=== PATIENT | female | born 1960 | race Caucasian/White ===

== ENCOUNTER 2020-03-14 07:23 | Outpatient (CLI) | payer OTHER, SELFPAY ==
[2020-03-16 05:51] LABS: SARS-CoV-2 RNA Undetected (Undetected); SARS-CoV-2 Specimen Source Nasopharynx
== END 2020-03-14 07:43 ==
PROVIDERS: Visit Provider Family Medicine
DX: Z11.59 Encounter for screening for other viral diseases (principal)
CPT/HCPCS: U0003

== ENCOUNTER 2020-05-02 01:24 | Outpatient (CLI) | payer MEDICAID, SELFPAY ==
[2020-05-02 09:19] LABS: Hemoglobin A1C 5.7 % (<5.7)
[2020-05-02 10:40] LABS: BUN 11 mg/dL (7-18); CREATININE 0.63 mg/dL (0.55-1.02); Calcium 9.2 mg/dL (8.5-10.1); Chloride 103 mmol/L (98-107); Glucose 110 mg/dL (74-106); Potassium 4.3 mmol/L (3.5-5.1); Sodium 140 mmol/L (136-145); TSH 0.11 uIU/mL (0.36-3.74)
== END 2020-05-02 01:44 ==
PROVIDERS: PCP Nurse Practitioner; Visit Provider Family Medicine
DX: I10 Essential (primary) hypertension (principal); E03.9 Hypothyroidism, unspecified; E11.9 Type 2 diabetes mellitus without complications
CPT/HCPCS: 36415; 80048; 83036; 84443

== ENCOUNTER 2020-06-17 04:28 | Outpatient (CLI) | payer MEDICAID, SELFPAY ==
[2020-06-19 09:06] LABS: SARS-CoV-2 RNA Not Detected (NotDetected); SARS-CoV-2 RNA Source Nasal/Nares
== END 2020-06-17 04:48 ==
PROVIDERS: PCP Nurse Practitioner; Visit Provider Surgery
DX: Z11.59 Encounter for screening for other viral diseases (principal); Z01.818 Encounter for other preprocedural examination
CPT/HCPCS: U0003

== ENCOUNTER 2020-06-22 09:13 | Day surgery (SDC) | payer MEDICAID, SELFPAY ==
--- NOTE | 2020-06-22 07:09 | COLE_ITS ---
Date of service: 06/22/20 Time of Service: 11:36 Colonoscopy Report Date of procedure: 06/22/20 Pre-op diagnosis general: Screening colonoscopy Post-op diagnosis procedure note: other (Saucedo-diverticulosis, colorectal polyps) Procedure: Colonoscopy with polypectomy Surgeon: Rosario Wright Anesthesia proc note operative: other (General/ASA 2/Gokul Downing CRNA) Estimated blood loss (mL): 3 Pathology: other (Descending and sigmoid polyp) Complications: None Disposition: same day Indications: No prior colonoscopy. Moved here from [place] by car in February. During the trip noted brownish fluid in the toilet. Nothing present on the toilet paper. No bright rectal bleeding.. Occurs in the am with a BM. No perianal or abdominal pain. No change in bowel habits, has about 2 stools/day. No prior issues with hemorrhoids. No FH colon cancer. Stool cards were heme negative. Has not started any new medications or vitamins. Prep: Miralax/Dulcolax Procedure Start Time: 10:59 Procedure End Time: 11:30 Findings: 2 small polyps and saucedo-diverticulosis Procedure Description: After informed consent was obtained the patient was taken to the procedure room and placed in a left decubitous position. Monitors were applied and a time out was done. The patients name, date of , procedure, allergies to medications and metal in their body was reviewed. The patient was then sedated. Once sedated and comfortable a rectal exam was done. External exam was normal. Internal exam revealed a normal sphincter tone and no palpable masses. The scope was then introduced and retro-flexed. No internal hemorrhoids were identified. The scope was then advanced to the cecum with difficulty. The ileocecal valve and appendiceal orifice were identified. The prep was good. The scope was then slowly retracted over 19 minutes back into the rectum. Po lyps were removed with cold forceps in the descending colon and sigmoid colon. There was moderate diverticulosisThe scope was removed and the patient was woken up and taken back to Same day surgery in stable condition. The patient tolerated the procedure well and there were no immediate complications. Follow up: The patient should follow up in 3-5 years unless they develop changes in bowel habits or other new gastrointestinal complaints.
--- NOTE | 2020-06-22 07:10 | W.PM.DSUDISC ---
Discharge Plan Disposition Patient Disposition: HOME Condition: Good Discharge Details Reason For Visit: Colonoscopy Attending Provider: Rosario Wright Primary Care Provider: Alina Ortiz Home Meds and New Rx's Prescriptions: Continued lisinopril-hydrochlorothiazide 20-25 mg tablet 1 tab PO DAILY Qty: 90 RF: 0 metformin 500 mg tablet 500 mg PO DAILY Qty: 90 RF: 0 levothyroxine 175 mcg capsule 175 mcg PO DAILY Qty: 90 RF: 0 omega-3 fatty acids Capsule 1 cap PO DAILY RF: 0 cholecalciferol (vitamin D3) [Vitamin D3] 125 mcg (5,000 unit) Tablet 125 mcg PO DAILY RF: 0 Discontinued polyethylene glycol 3350 17 gram/dose powder 238 g PO ONCE Qty: 238 RF: 0 bisacodyl [Dulcolax (bisacodyl)] 5 mg tablet,delayed release (DR/EC) 5 mg PO ONCE Qty: 4 RF: 0 Discharge Instructions Instructions: Diverticulosis (DC), Colorectal Polyps (DC) Additional Instructions: Findings: diverticulosis 2 polyps Follow up: 3-5 years Please call if you develop: fevers >101.5 Nausea or Vomiting Abdominal pain that is not transient DAY SURGERY UNIT POST ENDOSCOPY INSTRUCTIONS 1. Because there will be medication in your system for the next 24 hours, you may feel a little sleepy. Your coordination will be affected. Therefore: a. Do not drive or operate dangerous equipment for 24 hours. b. Do not drink alcohol beverages for 24 hours (not even beer). c. Plan to go home and rest for the day. 2. Generally there are no restrictions on your activity after a day or so has gone by, but you may feel a bit fatigued for a few days. 3 After you arrive home you may have a light meal and return to a normal diet as you can tolerate it without feeling sick to your stomach. 4. After surgery, you may feel pain or discomfort. This should be only transient, but if it persists please contact your doctor. 5. If there are any questions regarding the findings of your procedure, please feel free to contact your doctor. 6. If you are unable to contact your doctor with a problem, contact the hospital at [phone]. 7. Continue all your regular medications unless directed otherwise. I understand the above instructions and have no questions. Signature of Patient or Responsible Adult Escort Date/Time Name of Responsible Adult Escort Signature of Nurse Date/Time Activity:: Activity as Tolerated Diet:: High Fiber diet Discharge Orders Discharge Orders: Discharge Order (Routine); Ordered 06/22/20 Ordered By: Rosario Wright
[2020-06-22 09:38] VITALS: BP 132/78; PULSE 71; RESP 18; TEMP 36.5; O2SAT 100
[2020-06-22] MEDS: Lactated Ringers 1,000 ML 80 ML IV (09:55)
--- NOTE | 2020-06-22 11:25 | BOWEL_PTH ---
PATIENT: RUFINA JENKINS LOC: [facility] U#:[id number] AGE/SX: 60/F ROOM: RE06/22/[address]: Rosario Wright MD : 1960 BED: DIS: 06/22/2020 SPEC #: [id number] RECD: 06/22/20 12:37 STATUS: SALEEM REQ #: [id number] SCARLETT: 06/22/20 11:[address]: Rosario Wright DEPT: Surgical Specimen RECD BY: Bekah Llanos ENTERED: 06/22/20 12:38 SP TYPE: Bowel OTHR DR: Alina Ortiz Tissues: 1 - BIOPSY BOWEL 2 - BIOPSY BOWEL Procedures: GROSS AND MICRO LEVEL 4 Comments: [id number]
[2020-06-22 12:11] VITALS: BP 135/79; PULSE 59; RESP 18; TEMP 36.6; O2SAT 100
== END 2020-06-22 12:38 | disposition home or self-care (01) ==
LOC: SUR 09:13
PROVIDERS: PCP Nurse Practitioner; Visit Provider Surgery
PROC: 0DJD8ZZ Inspection of Lower Intestinal Tract, Via Natural or Artificial Opening Endoscopic (ICD-10-PCS; CPT 45378; principal; 2020-06-22 11:00)
DX: Z12.11 Encounter for screening for malignant neoplasm of colon (principal); K57.30 Diverticulosis of large intestine without perforation or abscess without bleeding; K63.5 Polyp of colon; E11.9 Type 2 diabetes mellitus without complications
CPT/HCPCS: 45380; 88305; J2001; J2704

== ENCOUNTER 2020-06-23 01:24 | Outpatient (CLI) | payer MEDICAID, SELFPAY ==
--- NOTE | 2020-06-23 12:56 | DI.MAMMO_ITS ---
EXAM: MG MAMMO SCREENING CLINICAL HISTORY: SCREENING,Z12.39. TECHNIQUE: Bilateral full field digital CC and MLO mammographic images were obtained with 3D tomosyn thesis and utilizing computer aided detection (CAD). COMPARISON: None. This is a baseline mammogram FINDINGS: There are no CAD designations. There are no spiculated masses nor malignant-appearing microcalcification groups. Small benign-appea ring nodules in the upper outer quadrant of the right breast have the appearance of benign lymph node s. A small benign appearing microcalcification rib posteriorly of again suggest wall in a right heraclio st is noted. No significant architectural distortion or skin thickening-traction. IMPRESSION: Benign findings. No radiographic evidence of malignancy. BI-RADS Category 2 - Benign Findings Breast Density - Category A - Almost entirely fatty Breast density Category C or D implies that the patient has dense breast tissue. Dense breast tissue can make it harder to find cancer on a mammogram. Dense breast tissue is also associated with an incr eased risk of breast cancer. This information about the result of the mammogram report was provided to the patient to raise their awareness. Use this report when you speak with the patient about their risks for breast cancer, which includes their family history. At that time, you may recommend additional screening tests (Ultrasoun d or MRI) as these tests may add significant information. A negative radiographic report should not delay biopsy if a dominant or clinically suspicious mass is present. Up to ten percent of cancers are not identified on mammography. A negative report may reinforce clinical impression. Adenosis and dense breasts may obscure an underlying neoplasm. False positive reports average 6 to 10%. Patient will receive a letter notifying them of these results.
== END 2020-06-23 01:44 ==
PROVIDERS: PCP Nurse Practitioner; Visit Provider Nurse Practitioner
DX: Z12.31 Encounter for screening mammogram for malignant neoplasm of breast (principal)
CPT/HCPCS: 77063; 77067

== ENCOUNTER 2020-06-29 13:21 | Outpatient (REF) | payer MEDICAID, SELFPAY ==
[2020-06-29 20:05] LABS: TSH (W/Ref FT4) 0.02 uIU/mL (0.36-3.74)
[2020-06-29 22:06] LABS: FREE T4 1.53 ng/dL (0.76-1.46)
== END 2020-06-29 13:41 ==
LOC: NCHCN 13:21
PROVIDERS: PCP Nurse Practitioner; Visit Provider Nurse Practitioner
DX: E03.9 Hypothyroidism, unspecified (principal)
CPT/HCPCS: 84439; 84443

== ENCOUNTER 2020-10-18 12:51 | Outpatient (REF) | payer MEDICAID, SELFPAY ==
[2020-10-19 09:29] LABS: TSH (W/Ref FT4) 0.04 uIU/mL (0.36-3.74)
[2020-10-19 09:46] LABS: FREE T4 1.46 ng/dL (0.76-1.46)
[2020-10-19 10:05] LABS: Hemoglobin A1C 5.8 % (<5.7)
== END 2020-10-18 12:52 | disposition home or self-care (01) ==
LOC: NCHCN 12:51
PROVIDERS: PCP Nurse Practitioner; Visit Provider Nurse Practitioner
DX: E11.9 Type 2 diabetes mellitus without complications (principal); E03.9 Hypothyroidism, unspecified
CPT/HCPCS: 83036; 84439; 84443

== ENCOUNTER 2021-01-03 09:03 | Outpatient (REF) | payer MEDICAID, SELFPAY ==
--- NOTE | 2021-01-03 08:30 | PAPFT_PTH ---
PATIENT: RUFINA JENKINS LOC: [facility]#:[id number] AGE/SX: 60/F ROOM: RE01/03/[address]: Alina Ortiz : 1960 BED: DIS: 01/03/2021 SPEC #: [id number] RECD: 01/04/21 13:08 STATUS: SALEEM REYing #: [id number] SCARLETT: 01/03/21 08:[address]: Alina Ortiz DEPT: [facility] Cytology RECD BY: Bekah Llanos Tissues: 1 - CX/ENDOCX FOR PAP SMEARS Procedures: PAP THIN PREP/UVM Screening HPV DNA PROBE Comments: [id number]
[2021-01-03 19:47] LABS: Hemoglobin A1C 5.5 % (<5.7)
[2021-01-03 20:18] LABS: ALT 21 U/L (14-59); AST 16 U/L (15-37); Albumin 3.8 g/dL (3.4-5.0); Alkaline Phosphatase 79 U/L (46-116); Anion Gap 8.9 mmol/L (3-11); BUN 10 mg/dL (7-18); Bilirubin, Total 0.3 mg/dL (0.2-1.0); CO2 27.1 mmol/L (21.0-32.0); CREATININE 0.6 mg/dL (0.55-1.02); Calcium 9.2 mg/dL (8.5-10.1); Calculated LDL 185 mg/dL (<100); Chloride 106 mmol/L (98-107); Cholesterol 270 mg/dL (<200); Glucose 119 mg/dL (74-106); HDL Cholesterol 52 mg/dL (40-60); Potassium 4.1 mmol/L (3.5-5.1); Sodium 142 mmol/L (136-145); TSH (W/Ref FT4) 2.48 uIU/mL (0.36-3.74); Total Protein 6.9 g/dL (6.4-8.2); Triglyceride 166 mg/dL (<150)
== END 2021-01-03 09:04 | disposition home or self-care (01) ==
LOC: NCHCN 09:03
PROVIDERS: PCP Nurse Practitioner; Visit Provider Nurse Practitioner
DX: Z12.4 Encounter for screening for malignant neoplasm of cervix (principal); Z11.51 Encounter for screening for human papillomavirus (HPV); E03.9 Hypothyroidism, unspecified; I10 Essential (primary) hypertension; E11.9 Type 2 diabetes mellitus without complications
CPT/HCPCS: 80053; 80061; 88142; 83036; 84443; 87624